=== PATIENT | female | born 1940 | race Caucasian/White ===

== ENCOUNTER 2018-02-22 11:00 | Outpatient (RCR) | payer MEDICARE, OTHER, SELFPAY | END 2018-03-15 11:52 | disposition home or self-care (01) | LOC: PT 11:00 | PROVIDERS: Visit Provider Orthopaedic Surgery Adult Reconstructive Orthopaedic Surgery | DX: M51.36 Other intervertebral disc degeneration, lumbar region (principal) | CPT/HCPCS: 97012; 97014; 97110; 97140; 97163; G0283 ==

== ENCOUNTER → 2021-10-10 19:37 | Outpatient (CLI) | payer MEDICARE, OTHER, SELFPAY ==
[2021-10-10 20:38] LABS: Basophils # 0.1 K/mm3 (0-0.2); Eosinophils # 0.2 K/mm3 (0.0-0.4); Hematocrit 46.9 % (37.0-47.0); Hemoglobin 15.3 g/dL (12.2-16.2); Lymphocytes # 2.1 K/mm3 (0.7-4.5); Lymphocytes % 30.6 % (10-50); Mean Corpuscular HGB Conc 32.7 g/dL (31.8-35.4); Mean Corpuscular Hemoglobin 32.2 pg (27.0-31.2); Mean Corpuscular Volume 98.5 fl (81-99); Mean Platelet Volume 9.8 fl (7.4-10.4); Monocytes # 0.4 K/mm3 (0.1-1.0); Monocytes % 5.1 % (1.7-9.3); Neutrophils # 4.1 K/mm3 (1.8-7.8); Neutrophils % 60.3 % (37.0-80.0); Platelet Count 271 K/mm3 (142-424); Red Blood Count 4.77 M/mm3 (4.20-5.40); Red Cell Distribution Width 13.7 % (11.5-17.5); White Blood Count 6.8 K/mm3 (4.8-10.8)
[2021-10-10 20:56] LABS: Alanine Aminotransferase 17 U/L (12-78); Albumin Level 3.4 g/dl (3.5-5.0); Albumin/Globulin Ratio 1.3 (1.1-1.8); Alkaline Phosphatase 94 U/L (38-126); Anion Gap 10.6 mEq/L (5-15); Aspartate Amino Transferase 55 U/L (14-36); Bilirubin,Total 0.3 mg/dl (0.2-1.3); Blood Urea Nitrogen 8 mg/dl (7-17); Calcium 8.6 mg/dl (8.4-10.2); Carbon Dioxide 27 mmol/L (22.0-30.0); Chloride 104 mmol/L (98-107); Chol/HDL Ratio 3.1 (1-3.5); Cholesterol 164 mg/dl (140-200); Estimated Glomerular Filt Rate 60 ml/min (>60); GFR (African American) 73 ML/MIN (>60); Globulin 2.7 g/dL (1.3-3.2); Glucose 113 mg/dl (74-100); HDL Cholesterol 53 mg/dl (40-60); Potassium 4.6 mmoL/L (3.5-5.1); Sodium 137 mmol/L (136-145); Total Protein,Serum 6.1 g/dl (6.3-8.2); Triglycerides 189 mg/dl (30-150); VLDL Cholesterol 38 mg/dL (0-40)
[2021-10-10 21:07] LABS: Direct LDL Cholesterol 65.57 mg/dL (100-129)
== END ==
PROVIDERS: PCP Internal Medicine Adolescent Medicine; Visit Provider Internal Medicine Adolescent Medicine
DX: I50.30 Unspecified diastolic (congestive) heart failure (principal); Z86.73 Personal history of transient ischemic attack (TIA), and cerebral infarction without residual deficits; E78.5 Hyperlipidemia, unspecified; Z86.2 Personal history of diseases of the blood and blood-forming organs and certain disorders involving the immune mechanism
CPT/HCPCS: 80053; 80061; 85025

== ENCOUNTER → 2022-02-25 11:30 | Outpatient (CLI) | payer MEDICARE, OTHER, SELFPAY ==
[2022-02-25 19:59] LABS: Basophils # 0.1 K/mm3 (0-0.2); Basophils % 0.8 % (0.1-2.0); Eosinophils # 0.3 K/mm3 (0.0-0.4); Eosinophils % 3.2 % (0.1-12.0); Hemoglobin 14.6 g/dL (12.2-16.2); Lymphocytes # 2.4 K/mm3 (0.7-4.5); Lymphocytes % 30.5 % (10-50); Mean Corpuscular HGB Conc 32.5 g/dL (31.8-35.4); Mean Corpuscular Hemoglobin 30.7 pg (27.0-31.2); Mean Corpuscular Volume 94.4 fl (81-99); Mean Platelet Volume 9.5 fl (7.4-10.4); Monocytes # 0.5 K/mm3 (0.1-1.0); Monocytes % 6.5 % (1.7-9.3); Neutrophils # 4.7 K/mm3 (1.8-7.8); Neutrophils % 58.9 % (37.0-80.0); Platelet Count 271 K/mm3 (142-424); Red Blood Count 4.77 M/mm3 (4.20-5.40); Red Cell Distribution Width 13.5 % (11.5-17.5)
[2022-02-25 20:23] LABS: Alanine Aminotransferase 27 U/L (12-78); Albumin Level 3.8 g/dl (3.5-5.0); Albumin/Globulin Ratio 1.4 (1.1-1.8); Alkaline Phosphatase 111 U/L (38-126); Aspartate Amino Transferase 36 U/L (14-36); Bilirubin,Total 0.5 mg/dl (0.2-1.3); Blood Urea Nitrogen 9 mg/dl (7-17); Calcium 8.8 mg/dl (8.4-10.2); Carbon Dioxide 27 mmol/L (22.0-30.0); Chloride 102 mmol/L (98-107); Chol/HDL Ratio 2.7 (1-3.5); Cholesterol 169 mg/dl (140-200); Estimated Glomerular Filt Rate 53 ml/min (>60); GFR (African American) 65 ML/MIN (>60); Globulin 2.7 g/dL (1.3-3.2); Glucose 78 mg/dl (74-100); HDL Cholesterol 62 mg/dl (40-60); Sodium 138 mmol/L (136-145); Total Protein,Serum 6.5 g/dl (6.3-8.2); Triglycerides 216 mg/dl (30-150); VLDL Cholesterol 43 mg/dL (0-40)
[2022-02-25 20:47] LABS: Hemoglobin A1C 5.5 % (4.0-6.0)
[2022-02-25 20:53] LABS: Thyroid Stimulating Hormone 4.47 uIU/mL (0.465-4.68)
[2022-02-25 20:58] LABS: Anion Gap 13.4 mEq/L (5-15); Potassium 4.4 mmoL/L (3.5-5.1)
== END ==
PROVIDERS: PCP Family Medicine; Visit Provider Family Medicine
DX: I10 Essential (primary) hypertension (principal); R53.83 Other fatigue; Z00.00 Encounter for general adult medical examination without abnormal findings; R73.9 Hyperglycemia, unspecified
CPT/HCPCS: 80053; 80061; 83036; 84443; 85025

== ENCOUNTER → 2022-04-03 06:30 | Outpatient (CLI) | payer MEDICARE, OTHER, SELFPAY | PROVIDERS: PCP Nurse Practitioner Family; Visit Provider Nurse Practitioner Family | DX: R30.0 Dysuria (principal); B96.1 Klebsiella pneumoniae [K. pneumoniae] as the cause of diseases classified elsewhere | CPT/HCPCS: 87086; 87088; 87186 ==

== ENCOUNTER → 2022-09-05 16:08 | Outpatient (CLI) | payer MEDICARE, OTHER, SELFPAY | PROVIDERS: PCP Nurse Practitioner Family; Visit Provider Nurse Practitioner Family | DX: R30.0 Dysuria (principal); B96.1 Klebsiella pneumoniae [K. pneumoniae] as the cause of diseases classified elsewhere | CPT/HCPCS: 87086; 87088; 87186 ==

== ENCOUNTER → 2022-09-18 23:08 | Outpatient (CLI) | payer MEDICARE, OTHER, SELFPAY | PROVIDERS: PCP Nurse Practitioner Family; Visit Provider Nurse Practitioner Family | DX: R30.0 Dysuria (principal); B96.1 Klebsiella pneumoniae [K. pneumoniae] as the cause of diseases classified elsewhere | CPT/HCPCS: 87086; 87088; 87186 ==

== ENCOUNTER 2023-03-07 23:04 | Observation (INO) | payer MEDICARE, OTHER, SELFPAY ==
[2023-03-07 22:58] VITALS: BP 159/88; PULSE 82; RESP 20; TEMP 36.8; O2SAT 95; BMI 39.3
--- NOTE | 2023-03-07 22:58 | PC.NURSE ---
in room talking with patient at this time
--- NOTE | 2023-03-07 23:13 | ECG_ITS ---
APPROVED REPORT Exam: Resting ECG HR:71 bpm ECG Measurements Heart Rate 71 AXES NC 171 P 32 QRSd 140 QRS 64 QT 422 T 34 QTc 444 Conclusion SINUS RHYTHM RIGHT BUNDLE BRANCH BLOCK [120+ ms QRS DURATION, UPRIGHT V1, 40+ ms S IN I/aVL/V4/V5/V6] ABNORMAL ECG UNCONFIRMED REPORT Electronically signed by : Miguel Morgan MD 03/08/2023 08:38:01
--- NOTE | 2023-03-07 23:26 | CT_ITS ---
PROCEDURE INFORMATION: Exam: CT Head Without Contrast Exam date and time: 03/08/2023 1:13 AM Age: 82 years old Clinical indication: Injury or trauma; Fall TECHNIQUE: Imaging protocol: Computed tomography of the head without contrast. Total images: 267 Radiation optimization: All CT scans at this facility use at least one of these dose optimization techniques: automated exposure control; mA and/or kV adjustment per patient size (includes targeted exams where dose is matched to clinical indication); or iterative reconstruction. REPORTING DATA: Count of CT and Cardiac NM exams in prior 12 months: This patient has received 0 known CTs and 0 known cardiac nuclear medicine studies in the 12 months prior to the current study. COMPARISON: No relevant prior studies available. FINDINGS: Brain: No acute intracranial hemorrhage, midline shift, or mass. Mild cortical and cerebellar atrophy. Medrano-white interface is maintained. Mild periventricular white matter hypodensity compatible with remote small vessel ischemic change. Basilar cisterns are preserved. Remote lacunar infarcts bilateral basal ganglia and left thalamus. Remote white matter ischemic changes central adonis. Cerebral ventricles: Mild ventriculomegaly compatible degree of central atrophy. Paranasal sinuses: Complete opacification left maxillary sinus. Air-fluid level right maxillary sinus. Partially opacified bilateral ethmoid air cells. Air-fluid level left sphenoid sinus. Mastoid air cells: Status post left mastoidectomy. Bones/joints: Osteopenia. No skull fracture. Hyperostosis of the frontal calvarium. Soft tissues: Unremarkable. Vasculature: Severe calcifications bilateral intracranial internal carotid arteries. IMPRESSION: 1. No acute intracranial process. 2. Chronic intracranial findings. 3. Acute paranasal sinusitis.
--- NOTE | 2023-03-07 23:27 | XR_ITS ---
PROCEDURE INFORMATION: Exam: XR Pelvis Exam date and time: 03/07/2023 11:47 PM Age: 82 years old Clinical indication: Pelvic pain; Additional info: Fall, left side pain TECHNIQUE: Imaging protocol: Radiologic exam of the pelvis. Views: 1 or 2 view. COMPARISON: No relevant prior studies available. FINDINGS: Bones/joints: Unremarkable. No acute fracture. Degenerative changes of spine. Soft tissues: Unremarkable. Gastrointestinal tract: Moderately large colonic stool burden. Nonobstructive bowel gas pattern. IMPRESSION: No acute radiographic findings identified.
--- NOTE | 2023-03-07 23:27 | CT_ITS ---
PROCEDURE INFORMATION: Exam: CT Cervical Spine Without Contrast Exam date and time: 03/08/2023 1:16 AM Age: 82 years old Clinical indication: Neck pain; Additional info: Fall TECHNIQUE: Imaging protocol: Computed tomography of the cervical spine without contrast. Total images: 272 Radiation optimization: All CT scans at this facility use at least one of these dose optimization techniques: automated exposure control; mA and/or kV adjustment per patient size (includes targeted exams where dose is matched to clinical indication); or iterative reconstruction. REPORTING DATA: Count of CT and Cardiac NM exams in prior 12 months: This patient has received 0 known CTs and 0 known cardiac nuclear medicine studies in the 12 months prior to the current study. COMPARISON: CT HEAD/BRAIN WO CON 03/08/2023 1:13 AM FINDINGS: Bones/joints: Osteopenia. Attenuation artifact compromising detail at lower levels. Vertebral body height and alignment is preserved. The base of the dens and the C1 and C2 articulations are maintained with moderate degenerative changes and calcification the cruciate ligaments. The cervicooccipital junction is intact. Facet joints are appropriately aligned with moderate degenerate facet spondylosis. Moderate multilevel degenerative disc disease throughout the cervical spine greatest at C5-C6 and C6-C7. Posterior projecting disc osteophyte complex at multiple levels, greatest at C5-C6 and C6-C7 resulting in mild acquired spinal canal stenosis. Multilevel bilateral mild neural foraminal encroachments by uncovertebral spurs. Paranasal sinuses: Paranasal sinus disease as described on separate head CT. Mastoid air cells: Status post left mastoidectomy. Prevertebral and retropharyngeal spaces: No prevertebral soft tissue swelling. Lungs: Included upper lungs are clear. Soft tissues: Unremarkable soft tissues of the neck. IMPRESSION: 1. No acute cervical fracture or traumatic subluxation. 2. Degenerative changes as described.
--- NOTE | 2023-03-07 23:27 | XR_ITS ---
PROCEDURE INFORMATION: Exam: XR Chest Exam date and time: 03/07/2023 11:47 PM Age: 82 years old Clinical indication: Pain; Additional info: Fall, recent uri, persistent SOB TECHNIQUE: Imaging protocol: Radiologic exam of the chest. Views: 1 view. COMPARISON: No relevant prior studies available. FINDINGS: Lungs: Unremarkable. No consolidation. Pleural spaces: Unremarkable. No pleural effusion. No pneumothorax. Heart/Mediastinum: Unremarkable. No cardiomegaly. Bones/joints: Unremarkable. IMPRESSION: No acute findings.
--- NOTE | 2023-03-07 23:28 | XR_ITS ---
PROCEDURE INFORMATION: Exam: XR Left Elbow Exam date and time: 03/07/2023 11:47 PM Age: 82 years old Clinical indication: Pain; Elbow; Left; Additional info: Fall pain TECHNIQUE: Imaging protocol: Radiologic exam of the left elbow. Views: 3 or more views. COMPARISON: No relevant prior studies available. FINDINGS: Bones/joints: Normal. Soft tissues: Normal. IMPRESSION: No acute findings.
--- NOTE | 2023-03-07 23:28 | XR_ITS ---
PROCEDURE INFORMATION: Exam: XR Left Humerus Exam date and time: 03/07/2023 11:47 PM Age: 82 years old Clinical indication: Pain; Upper arm; Left; Additional info: Fall pain TECHNIQUE: Imaging protocol: Radiologic exam of the left humerus. Views: 2 or more views. COMPARISON: No relevant prior studies available. FINDINGS: Bones/joints: Normal. Moderate degenerative changes of the acromioclavicular and glenohumeral joints. Soft tissues: Normal. IMPRESSION: No acute findings.
--- NOTE | 2023-03-07 23:28 | XR_ITS ---
PROCEDURE INFORMATION: Exam: XR Left Shoulder Exam date and time: 03/07/2023 11:47 PM Age: 82 years old Clinical indication: Pain; Shoulder; Left; Additional info: Fall, pain TECHNIQUE: Imaging protocol: Radiologic exam of the left shoulder. Views: 2 or more views. COMPARISON: No relevant prior studies available. FINDINGS: Bones/joints: Normal. Moderate degenerative changes of glenohumeral and acromioclavicular joints. Soft tissues: Normal. IMPRESSION: No acute findings.
--- NOTE | 2023-03-07 23:28 | XR_ITS ---
PROCEDURE INFORMATION: Exam: XR Right Hip Exam date and time: 03/07/2023 11:47 PM Age: 82 years old Clinical indication: Hip pain; Right hip; Additional info: Fall pain TECHNIQUE: Imaging protocol: Radiologic exam of the right hip. Views: 2 or 3 views hip with pelvis when performed. COMPARISON: No relevant prior studies available. FINDINGS: Bones/joints: Unremarkable. No acute fracture. [id number] degenerative changes visualized hip. Soft tissues: Unremarkable. IMPRESSION: No acute findings.
--- NOTE | 2023-03-07 23:28 | XR_ITS ---
PROCEDURE INFORMATION: Exam: XR Left Hip Exam date and time: 03/07/2023 11:47 PM Age: 82 years old Clinical indication: Hip pain; Left hip; Additional info: Fall pain TECHNIQUE: Imaging protocol: Radiologic exam of the left hip. Views: 2 or 3 views hip with pelvis when performed. COMPARISON: No relevant prior studies available. FINDINGS: Bones/joints: Unremarkable. No acute fracture. Moderate degenerative changes of hip. Soft tissues: Unremarkable. IMPRESSION: No acute findings.
[2023-03-07 23:36] LABS: Basophils % 0.3 % (0.1-2.0); Eosinophils # 0.4 K/mm3 (0.0-0.4); Hematocrit 43.8 % (37.0-47.0); Hemoglobin 14.8 g/dL (12.2-16.2); Mean Corpuscular HGB Conc 33.8 g/dL (31.8-35.4); Mean Corpuscular Hemoglobin 31.4 pg (27.0-31.2); Mean Corpuscular Volume 92.7 fl (81-99); Mean Platelet Volume 8.4 fl (7.4-10.4); Monocytes # 0.5 K/mm3 (0.1-1.0); Monocytes % 5.5 % (1.7-9.3); Neutrophils # 6.9 K/mm3 (1.8-7.8); Neutrophils % 70.2 % (37.0-80.0); Platelet Count 253 K/mm3 (142-424); Red Blood Count 4.73 M/mm3 (4.20-5.40); Red Cell Distribution Width 14.9 % (11.5-17.5); White Blood Count 9.8 K/mm3 (4.8-10.8)
[2023-03-07 23:37] LABS: Chloride 99 mmol/L (98-107); Potassium 3.9 mmoL/L (3.5-5.1); Sodium 134 mmol/L (136-145)
[2023-03-07 23:38] VITALS: BP 182/70; PULSE 79; O2SAT 95
[2023-03-07 23:39] LABS: Blood Urea Nitrogen 14 mg/dl (7-17); Creatinine Clearance Estimated 53 mL/min (50-200); Estimated Glomerular Filt Rate 39 ml/min (>60); GFR (African American) 48 ML/MIN (>60)
[2023-03-07 23:40] LABS: Alanine Aminotransferase 41 U/L (12-78); Albumin Level 3.5 g/dl (3.5-5.0); Albumin/Globulin Ratio 1.2 (1.1-1.8); Alkaline Phosphatase 96 U/L (38-126); Anion Gap 9.9 mEq/L (5-15); Aspartate Amino Transferase 33 U/L (14-36); Bilirubin,Total 0.8 mg/dl (0.2-1.3); Calcium 8.3 mg/dl (8.4-10.2); Carbon Dioxide 29 mmol/L (22.0-30.0); Globulin 2.9 g/dL (1.3-3.2); Glucose 137 mg/dl (74-100); Total Protein,Serum 6.4 g/dl (6.3-8.2)
[2023-03-07 23:41] LABS: Magnesium 2.2 mg/dl (1.6-2.3)
[2023-03-08] VITALS (8 sets, daily range): BP systolic 116–181; BP diastolic 50–99; PULSE 63–110; RESP 16–20; TEMP 36.6–37.2; O2SAT 90–96; BMI 35.8; BMI 35.5
--- NOTE | 2023-03-08 00:29 | HMH.EDGENADL ---
Discharge Plan Disposition Patient Disposition: Admitted Prescriptions Prescriptions: No Action fluticasone propionate 50 mcg/actuation spray,suspension 2 spray NS omega-3 fatty acids 1,000 mg capsule 1,000 mg PO DAILY psyllium husk [Daily Fiber] 0.4 gram capsule 0.4 g PO DAILY aspirin 325 mg tablet 325 mg PO DAILY folic acid 400 mcg tablet 0.4 mg PO DAILY cranberry fruit concentrate 450 mg tablet 450 mg PO DAILY Rx Instructions: administer with a meal triamcinolone acetonide 0.1 % cream 1 applic TP DAILY Qty: 15 0RF albuterol sulfate 90 mcg/actuation HFA aerosol inhaler 1 inh inhalation QID Qty: 6.7 2RF docusate sodium [Colace] 100 mg capsule 100 mg PO DAILY Qty: 30 3RF levothyroxine 50 mcg tablet See Rx Instructions .ROUTE .COMPLEX Qty: 90 3RF Dose Instruction: TAKE 1 TABLET BY MOUTH ONCE DAILY FOR HYPOTHYROIDISM Rx Instructions: TAKE 1 TABLET BY MOUTH ONCE DAILY FOR HYPOTHYROIDISM pantoprazole 20 mg tablet,delayed release (DR/EC) 20 mg PO DAILY 90 Days Qty: 90 0RF bupropion HCl 150 mg tablet extended release 24 hr 150 mg PO DAILY 90 Days Qty: 90 0RF furosemide 20 mg tablet 20 mg PO BID 90 Days Qty: 180 0RF gabapentin 300 mg capsule 300 mg PO TID Qty: 90 2RF rosuvastatin 10 mg tablet See Rx Instructions .ROUTE .COMPLEX Qty: 90 0RF Dose Instruction: TAKE 1 TABLET BY MOUTH ONCE DAILY FOR HYPERLIPIDEMIA Rx Instructions: TAKE 1 TABLET BY MOUTH ONCE DAILY FOR HYPERLIPIDEMIA potassium chloride 20 mEq tablet,ER particles/crystals See Rx Instructions .ROUTE .COMPLEX Qty: 90 0RF Dose Instruction: Take 1 tablet by mouth once daily Rx Instructions: Take 1 tablet by mouth once daily prednisone 10 mg tablets,dose pack See Rx Instructions PO PER PKG DIR Qty: 21 0RF Rx Instructions: PO PER PKG DIR Clinical Impressions Clinical Impression: JANEE (acute kidney injury), Falls frequently, Right leg weakness, Left elbow pain, Debility Discharge ED Provider: Elmo Camejo Adult HPI General Chief complaint: Fall Stated complaint: pain Time Seen by Provider: 03/07/23 23:13 Mode of Arrival: EMS Source of Information: Patient and EMS Limitations: Physical Limitations Description of Symptoms (Recalled from ER Triage Doc. by RN): Pt arrives from home by EMS, with complaints of right leg and left arm pain & weakness. Pt states she took a fall yesterday in her bathroom from standing position, denies any LOC. Pt lives at home with her sister and she told EMS she has been falling a lot lately. Hx of TIA, NIH at this time 0. Pt A/O x 4. History of Present Illness HPI narrative: 82-year-old female, history of prior stroke without residual deficits, history of memory issues , hypothyroidism presents with multiple complaints. History obtained by interactive discussion with EMS, patient, patient's sister (medical power of personal injury attorney). Patient is alert and oriented and answers questions, but is a relatively poor historian. Patient lives home alone but has someone in the house during the day most days. She has a power lift chair. For the last 3 weeks or so, patient has had worsening right leg weakness. She reports that she feels like its not working properly. She normally ambulates with a walker. She has had multiple falls over the last couple of weeks. She had a fall yesterday afternoon/evening as well. She reports left upper extremity and left hip pain after the fall. Denies loss of consciousness. She denies any chest pain abdominal pain or shortness of breath. Sister reports that she had a recent respiratory illness. Patient is on aspirin. Related Data Home Medications Medication Instructions Recorded Confirmed aspirin 325 mg tablet 325 mg PO DAILY 10/10/21 02/19/23 cranberry fruit concentrate 450 mg 450 mg PO DAILY 10/10/21 02/19/23 tablet fluticasone propionate 50 2 sp
--- NOTE | 2023-03-08 01:21 | PC.NURSE ---
ED doctor on phone with hospitalist re: admission
--- NOTE | 2023-03-08 01:28 | PC.NURSE ---
Admitting notified for admission
--- NOTE | 2023-03-08 01:29 | EXP.HP ---
History of Present Illness *Admission Date: 03/08/23 *Reason for visit:: right leg weakness *History of present illness: 82 year old female presented to the ED for c/o right leg pain and left arm pain. PMHX of dementia, hypothyroidism, cva, hld, gerd and falls. The ED workup revealed a JANEE with a creatinine of 1.30. Her Imaging in the ED obtained showed no acute fractures or injury. The ED attempted to walk pt and ED physician reported that pt is unable to left right foot off ground. Pt states this has been occurring for the past three weeks and has been causing her to fall. She lives alone. The ED physician consulted the hospitalist service. I admitted the pt to the medical surgical floor. She will have PT evaluation in the morning. She denies any pain. She is able to lift both legs bilateral in the bed. Strength in both legs are equal upon exam. [facility] Disclaimer: The information contained in this section may have been updated after the patient was seen, as this information can be updated by other users. Medical History (Updated 03/08/23 @ 01:31 by SUDHIR [place]) Allergic rhinitis Anemia Anxiety and depression Bronchitis Dementia Edema GERD (gastroesophageal reflux disease) Heart failure Hyperlipidemia Hypothyroidism Ischemic stroke Neuropathy Urinary tract infection Surgical History H/O hemorrhoidectomy H/O shoulder surgery History of cholecystectomy History of ear surgery Family History Mother Hypertension Cancer Stroke Brother Cancer Heart attack Father Cancer Social History (Updated 03/08/23 @ 02:29 by Micheline Michel RN) Smoking Status: Never smoker second hand exposure: No alcohol intake: never counseling given: No current occupational status: retired Travel in the last 8 weeks: None Review of Systems *Cardiovascular Cardiovascular: Reports system reviewed and no additional complaints, except as documented *Respiratory Respiratory: Reports system reviewed and no additional complaints, except as documented *Gastrointestinal Gastrointestinal: Reports system reviewed and no additional complaints, except as documented *Genitourinary Genitourinary: Reports system reviewed and no additional complaints, except as documented *Musculoskeletal Musculoskeletal: Reports abnormal gait *Neurologic Neurologic: Reports system reviewed and no additional complaints, except as documented and Reports abnormal gait Meds Home Medications and Allergies Home Medications Medication Instructions Recorded Confirmed Type aspirin 325 mg tablet 325 mg PO DAILY Heart Health 10/10/21 03/08/23 History fluticasone propionate 50 2 spray intranasal HS Allergy 10/10/21 03/08/23 History mcg/actuation nasal Symptoms spray,suspension albuterol sulfate 90 mcg/actuation 1 inh inhalation QIDP PRN 03/08/23 03/08/23 History aerosol inhaler Shortness Of Breath bupropion HCl 150 mg 24 hr tablet, 150 mg PO DAILY Mood 03/08/23 03/08/23 History extended release furosemide 20 mg tablet 20 mg PO DAILY Fluid 03/08/23 03/08/23 History gabapentin 300 mg capsule 300 mg PO TID Pain 03/08/23 03/08/23 History levocetirizine 5 mg tablet 5 mg PO DAILY Allergy Symptoms 03/08/23 03/08/23 History levothyroxine 50 mcg tablet 50 mcg PO DAILY Thyroid 03/08/23 03/08/23 History pantoprazole 20 mg tablet,delayed 20 mg PO DAILY Acid Reflux 03/08/23 03/08/23 History release potassium chloride 20 mEq 20 meq PO DAILY Supplement 03/08/23 03/08/23 History tablet,extended release(part/cryst) rosuvastatin 10 mg tablet 10 mg PO HS Cholesterol 03/08/23 03/08/23 History New Prescriptions to Start Prescriptions: Allergies Allergy/AdvReac Type Severity Reaction Status Date / Time doxycycline Allergy Intermediate DIARRHEA, Verified 02/19/23 10:22 UPSETS STOMACH erythromycin base Allergy Intermedia
--- NOTE | 2023-03-08 01:47 | PC.NURSE ---
0140 RECEIVED PHONE REPORT FROM NORMA RN/ED NURSE. PATIENT IS AN 82 YO FEMALE. ADMISSION DX: RIGHT LEG WEAKNESS/FREQ FALLS. NUMEROUS ALLERGIES.
--- NOTE | 2023-03-08 02:02 | PC.NURSE ---
Pt arrived to floor via wheelchair @ 0200
[2023-03-08 02:11] LABS: Thyroid Stimulating Hormone 6.83 uIU/mL (0.465-4.68)
--- NOTE | 2023-03-08 02:16 | PC.NURSE ---
0200 PATIENT ARRIVED TO THE FLOOR VIA W/C ACCOMPANIED BY 4 FAMILY MEMBERS.
[2023-03-08 08:39] LABS: Basophils % 0.3 % (0.1-2.0); Eosinophils # 0.4 K/mm3 (0.0-0.4); Eosinophils % 5.4 % (0.1-12.0); Hematocrit 39.8 % (37.0-47.0); Hemoglobin 13.4 g/dL (12.2-16.2); Lymphocytes # 1.8 K/mm3 (0.7-4.5); Lymphocytes % 25.6 % (10-50); Mean Corpuscular HGB Conc 33.7 g/dL (31.8-35.4); Mean Platelet Volume 8.6 fl (7.4-10.4); Monocytes # 0.5 K/mm3 (0.1-1.0); Monocytes % 6.9 % (1.7-9.3); Neutrophils # 4.3 K/mm3 (1.8-7.8); Neutrophils % 61.7 % (37.0-80.0); Platelet Count 222 K/mm3 (142-424); Red Blood Count 4.32 M/mm3 (4.20-5.40); Red Cell Distribution Width 14.8 % (11.5-17.5)
--- NOTE | 2023-03-08 08:42 | HMH.PHAINT1 ---
Pharmacy Intervention Comments: MEDICATION RECONCILIATION COMPLETED ON PATIENT USING EXTERNAL FILL HISTORY FROM PHARMACY. -LIZZY ALBERTO, GLYNND
[2023-03-08 08:46] LABS: Anion Gap 8.3 mEq/L (5-15); Blood Urea Nitrogen 12 mg/dl (7-17); Calcium 8.1 mg/dl (8.4-10.2); Carbon Dioxide 28 mmol/L (22.0-30.0); Chloride 100 mmol/L (98-107); Creatinine Clearance Estimated 52 mL/min (50-200); Estimated Glomerular Filt Rate 43 ml/min (>60); GFR (African American) 52 ML/MIN (>60); Glucose 101 mg/dl (74-100); Potassium 3.3 mmoL/L (3.5-5.1); Sodium 133 mmol/L (136-145)
--- NOTE | 2023-03-08 14:01 | HMH.PTEV ---
Physical Therapy Evaluation Rehab PT IP Evaluation Start: 03/08/23 01:26 Freq: ONCE Status: Active Protocol: Document 03/08/23 13:50 HWADE (Rec: 03/08/23 14:00 HWADE [id number]) Subjective/History History History Pt is a 82 year old female that presented to [facility] ED with reports of R arm/leg pain. Work up in ED revealed JANEE with a creatinine of 1.30. Imaging performed was negative for acute abnormality. ED attempted to walk pt and pt was unable to lift R foot off the floor. Pt was admitted for inpatient management and further evaluation. PMH: Allergic rhinitis Anemia Anxiety and depression Bronchitis Dementia Edema GERD (gastroesophageal reflux disease) Heart failure Hyperlipidemia Hypothyroidism Ischemic stroke Neuropathy Urinary tract infection Subjective Subjective Pt presents seated in bedside chair with sister at side, pleasant and agreeable to PT evaluation. Pt denies reports of pain at rest. Pt oriented to person and time with VC. Pt and sister report that she lives at home alone in a [facility] with 2 ANOOP. Pt reports that she uses a RW at baseline. Pt states that she has daily assistance from 10am-6pm. Pt states that they assist her with showering, laundry and other household tasks. Pt reports ~4 falls recently. Pt performed sit <> stand transfer with min A. Pt ambulated x30' with min A and SURGICAL APPLIANCE FITTER. Pt demonstrates RLE foot drop during gait and is unable t
--- NOTE | 2023-03-08 16:13 | P.EN_ITS ---
Advance care planning note: Active diagnosis: TIA, fall history of stroke with residual right foot drop, neuropathy, anxiety, hypothyroidism, obesity The patient's active diagnoses are of sufficient risk that focused discussion on advanced care planning is indicated in order to allow the patient to thoughtfully consider personal goals of care; and, if situations arise that prevent the ability to personally give input, to ensure appropriate representation of their personal desires through documentation or informed surrogate decision makers. Discussion: Persons present and participating in discussion: Stefany and her sister Marah Discussion: Kyrie Mccall's frequent falls, her safety going home. Stefany is adamant that she wants to go home and does not want to go to a care home. Discussed her history of previous falls and her previous stroke that left her at [facility] for 3 months where she learn to walk again and go from being wheelchair dependent to able to ambulate with a walker. At this time she has a music theory professor that is with her daily from 10 AM to 6 PM. She reports she falls about twice a week, sometimes her music theory professor will find her aft er she is fallen in the morning and help her get up. Has fortunately not had traumatic event such as head trauma or hip fracture as of yet but is high risk for adverse events, significant injury to life or limb, or . PT evaluated and recommends home with 24-hour assistance and home health or short-term skilled placement. Patient does not want to leave her home even though she lives in [place] by herself and her sister who is her only relative lives in [place]. Has necessitated EMS to come to her house and pick her up previously. Does have a life alert but forgets to use it. Patient states she understands the risk but does have history of some mild cognitive impairment and previous CVAs. Discussed the need for case management to assist with dispo recommendations. Patient is open to this. Time spent: Total time spent [id number] in education and discussion directly related to advance care plannin minutes Abdon Fox 03/08/2023 3-3 20 5 PM
--- NOTE | 2023-03-08 17:23 | PC.NURSE ---
Patient has mild confusion and needs some things repeated during conversation and needs mild reorientation during conversation. Patient gets up to restroom with 2 assist. Vital signs stable.
[2023-03-09 04:00] VITALS: BP 128/49; PULSE 82; RESP 16; TEMP 36.6; O2SAT 91; BMI 35.9
--- NOTE | 2023-03-09 05:06 | PC.NURSE ---
PATIENT REFUSES HEPARIN FOR VTE. A/O X 3. BED ALARM IN USE. RESTING QUIETLY IN BED WITH HOB ELEVATED 35 DEGREES.
[2023-03-09 06:14] LABS: Basophils % 0.3 % (0.1-2.0); Eosinophils # 0.4 K/mm3 (0.0-0.4); Eosinophils % 4.5 % (0.1-12.0); Hematocrit 41.1 % (37.0-47.0); Hemoglobin 13.5 g/dL (12.2-16.2); Lymphocytes % 26.2 % (10-50); Mean Corpuscular Hemoglobin 30.7 pg (27.0-31.2); Mean Corpuscular Volume 93.1 fl (81-99); Mean Platelet Volume 8.4 fl (7.4-10.4); Monocytes # 0.6 K/mm3 (0.1-1.0); Monocytes % 7.3 % (1.7-9.3); Neutrophils # 4.7 K/mm3 (1.8-7.8); Neutrophils % 61.7 % (37.0-80.0); Platelet Count 216 K/mm3 (142-424); Red Blood Count 4.41 M/mm3 (4.20-5.40); White Blood Count 7.7 K/mm3 (4.8-10.8)
[2023-03-09 06:23] LABS: Alanine Aminotransferase 28 U/L (12-78); Albumin Level 2.9 g/dl (3.5-5.0); Albumin/Globulin Ratio 1.1 (1.1-1.8); Alkaline Phosphatase 85 U/L (38-126); Anion Gap 5.9 mEq/L (5-15); Aspartate Amino Transferase 26 U/L (14-36); Bilirubin,Total 0.8 mg/dl (0.2-1.3); Blood Urea Nitrogen 10 mg/dl (7-17); Calcium 8.2 mg/dl (8.4-10.2); Carbon Dioxide 29 mmol/L (22.0-30.0); Chloride 102 mmol/L (98-107); Creatinine Clearance Estimated 52 mL/min (50-200); Estimated Glomerular Filt Rate 43 ml/min (>60); GFR (African American) 52 ML/MIN (>60); Globulin 2.6 g/dL (1.3-3.2); Glucose 102 mg/dl (74-100); Magnesium 2.2 mg/dl (1.6-2.3); Potassium 3.9 mmoL/L (3.5-5.1); Sodium 133 mmol/L (136-145); Total Protein,Serum 5.5 g/dl (6.3-8.2)
--- NOTE | 2023-03-09 07:43 | SW/DCPLANNER ---
Addendum entered by Haylie Rivas 03/09/23 13:33: Julia w/ [facility] stated that services will begin this week for this patient. Addendum entered by Haylie Rivas 03/09/23 09:39: I spoke w/ patient and her sister in the room this AM: patient is adamant she wants to return home w/ home health services and private sitter from 10AM-6PM. I have also provided patient w/ private sitter's list. Addendum entered by Haylie Rivas 03/09/23 08:50: I have also provided this patient w/ a private sitter's list. Original Note: I spoke w/ patient regarding plans once medically stable for discharge. Patient stated that she resides at home alone in [place] but will have someone staying w/ her at discharge. PT evaluated patient and recommended home w/ 17/11 assistance and home health vs SNF. I explained to patient at this time if interested in SNF it would be private pay. Patient expressed that she is only interested in returning home w/ assistance (she has already arranged this) and home health services. Patient stated that she prefers to use [facility] at time of discharge. Patient stated that she is suppose to discharge home today. Patient did not have any further questions/needs at this time. I will set up home health services once medically stable for discharge.
[2023-03-09 07:51] VITALS: BP 154/57; PULSE 81; RESP 20; TEMP 36.7; O2SAT 93
--- NOTE | 2023-03-09 10:22 | HMH.OTEV ---
OT Inpatient Evaluation Rehab OT IP Evaluation Start: 03/08/23 16:12 Freq: ONCE Status: Active Protocol: Document 03/09/23 08:56 GLENN (Rec: 03/09/23 09:01 GLENN [id number]) Rehab OT IP Assessment Subjective History 82 year old female presented to the ED for c/o right leg pain and left arm pain. PMHX of dementia, hypothyroidism, cva, hld, gerd and falls. The ED workup revealed a JANEE with a creatinine of 1.30. Her Imaging in the ED obtained showed no acute fractures or injury. The ED attempted to walk pt and ED physician reported that pt is unable to left right foot off ground. Pt states this has been occurring for the past three weeks and has been causing her to fall. She lives alone. The ED physician consulted the hospitalist service. I admitted the pt to the medical surgical floor. She will have PT evaluation in the morning. She denies any pain. She is able to lift both legs bilateral in the bed. Strength in both legs are equal upon exam. Patient has a hx of CVA. Does lives alone in 3-4 ANOOP the home. Has a life alert but forgets to use it. Uses a RW to ambulate. Hx of falling. patient reported that she Has a sitter 5 days a week to assist with ADLs and IADLs as needed. Subjective I need to use the restroom. Instructed Patient on proper hand and foot placement to complete bed mobility from supine->sit @ EOB requiring Mod A. Once at EOB, Instructed Patient on using RW to ambulate to restroom ~15ft. Patient completed fx'l mobility with RW with CGA for
--- NOTE | 2023-03-09 11:13 | EXP.DC.SUM ---
General Admission date:: 03/08/23 Discharge date: 03/09/23 HPI HPI HPI: 82 year old female presented to the ED for c/o right leg pain and left arm pain. PMHX of dementia, hypothyroidism, cva, hld, gerd and falls. The ED workup revealed a JANEE with a creatinine of 1.30. Her Imaging in the ED obtained showed no acute fractures or injury. The ED attempted to walk pt and ED physician reported that pt is unable to left right foot off ground. Pt states this has been occurring for the past three weeks and has been causing her to fall. She lives alone. The ED physician consulted the hospitalist service. I admitted the pt to the medical surgical floor. She will have PT evaluation in the morning. She denies any pain. She is able to lift both legs bilateral in the bed. Strength in both legs are equal upon exam. Hospital Course Hospital Course Hospital Course: 82 year old female presented to the ED for c/o right leg pain and left arm pain. PMHX of dementia, hypothyroidism, cva, hld, gerd and falls. The ED workup revealed a JANEE with a creatinine of 1.30. Her Imaging in the ED obtained showed no acute fractures or injury. The ED attempted to walk pt and ED physician reported that pt is unable to left right foot off ground. Pt states this has been occurring for the past three weeks and has been causing her to fall. She lives alone. The ED physician consulted the hospitalist service. I admitted the pt to the medical surgical floor. Therapy evaluated, patient at baseline. Recommend home with 24-hour assistance but patient is adamant that she will go home to her current situation. Does not want to go to rehab or long-term care. Stable for discharge. Problems addressed as follows: FALLS RIGHT LEG WEAKNESS -Patient is chronic right foot weakness and ambulates with a walker. Reports she has fallen at home a time or 2 a week. Has a caregiver with her daily from 10 AM to 6 PM. Therapy evaluated and recommended SNF or 24-hour assistance at home. Patient states she is comfortable going back to her previous setting with a caregiver daily for 8 hours. Is adamant that she will not go to a residential. At this time she has capacity to make her own decisions. Extensive discussion about risk for falling again. Patient states she understands but wants to go home and does not want to leave her house. Is highly resistant to coming back to a residential. Patient's sister involved in discussions. -Of note, imaging on arrival showed no fractures. JANEE vs CKD -Creatinine of 1.30 on admission, 1.2 on discharge. This appears to be her baseline. GERD HYPOTHYROIDISM HLD HX OF CVA HF ANXIETY AND DEPRESSION -Continued home medications. Stable to discharge home with home health and caregiver. Spent 35 minutes in discharge counseling and direct care with patient. Exam Data for Last 24 hours Vital signs and Labs for Last 24 Hours: Temp Pulse Resp BP Pulse Ox O2 Del Method 98.0 F 81 20 154/57 H 93 L Room Air 03/09/23 07:51 03/09/23 07:51 03/09/23 07:51 03/09/23 07:51 03/09/23 07:51 03/09/23 07:51 Laboratory Results - last 24 hr 03/09/23 05:36: WBC 7.7, RBC 4.41, Hgb 13.5, Hct 41.1, MCV 93.1, MCH 30.7, MCHC 33.0, RDW 15.0, Plt Count 216, MPV 8.4, Neut % (Auto) 61.7, Lymph % (Auto) 26.2, Cocke % (Auto) 7.3, Eos % (Auto) 4.5, Baso % (Auto) 0.3, Neut # (Auto) 4.7, Lymph # (Auto) 2.0, Cocke # (Auto) 0.6, Eos # (Auto) 0.4, Baso # (Auto) 0.0, Sodium 133 L, Potassium 3.9, Chloride 102, Carbon Dioxide 29, Anion Gap 5.9, BUN 10, Creatinine 1.20 H, Estimated Creat Clear 52, Estimated GFR 43 L, Est GFR ( Amer) 52 L, Glucose 102 H, Calcium 8.2 L, Magnesium 2.2, Total Bilirubin 0.8, AST 26, ALT 28 D, Alkaline Phosphatase 85, Total Protein 5.5 L, Albumin 2.9 L D, Globulin 2.6, Albumin/Globulin Ratio 1.1 I & O for Last 24 hours: Intake & Output 03/06/23 03/07/23 03/08/23 03/09/23 23:59 23:59 23:59 23:59 Intake Total 1694 / 1894 470 / 470 Output T
--- NOTE | 2023-03-10 12:46 | CARE MANAGER ---
Spoke with patient's sister as patient was meeting with home health. Patient had no new medications. Sister states she is doing much better and denies any questions or concerns. JESSICA Hurtado
== END 2023-03-09 13:50 | disposition home health service (06) ==
LOC: ER 03-08 01:28 → 2ND 03-08 01:57
PROVIDERS: Nurse Practitioner Critical Care Medicine; Admitting Provider Internal Medicine Adolescent Medicine; Emergency Provider Emergency Medicine; PCP Family Medicine; Visit Provider Internal Medicine Adolescent Medicine
DX: R29.898 Other symptoms and signs involving the musculoskeletal system (principal); M62.81 Muscle weakness (generalized); R29.6 Repeated falls; N17.9 Acute kidney failure, unspecified; K21.9 Gastro-esophageal reflux disease without esophagitis; E03.9 Hypothyroidism, unspecified; E78.5 Hyperlipidemia, unspecified; I50.9 Heart failure, unspecified; F41.9 Anxiety disorder, unspecified; F32.A Depression, unspecified; N18.9 Chronic kidney disease, unspecified; Z79.899 Other long term (current) drug therapy
CPT/HCPCS: 36415; 70450; 71045; 72125; 72170; 73030; 73060; 73080; 73502; 80048; 80053; 83735; 84443; 85025; 93005; 97162; 97165; 97530; 99285; G0378

== ENCOUNTER 2023-03-12 10:23 | Emergency (ER) | payer MEDICARE, OTHER, SELFPAY ==
[2023-03-12] VITALS (10 sets, daily range): BP systolic 130–165; BP diastolic 46–71; PULSE 70–91; RESP 12–20; TEMP 36.7–36.9; O2SAT 92–96; BMI 33.3; BMI 33.1
--- NOTE | 2023-03-12 11:04 | PC.NURSE ---
PATIENT SENT TO ER PER Ashlie CHONG APRN FOR FURTHER EVALUATION. REPORT GIVEN TO DR. SIMON BY Ashlie GARCÍA APRN. PATIENT TRANSPORTED TO ER VIA WHEELCHAIR WITH [facility] STAFF ASSIST. FAMILY AT BEDSIDE
--- NOTE | 2023-03-12 11:09 | ECG_ITS ---
APPROVED REPORT Exam: Resting ECG HR:85 bpm ECG Measurements Heart Rate 85 AXES AZ 177 P 49 QRSd 133 QRS 46 QT 385 T 37 QTc 427 Conclusion SINUS RHYTHM RIGHT BUNDLE BRANCH BLOCK [120+ ms QRS DURATION, UPRIGHT V1, 40+ ms S IN I/aVL/V4/V5/V6] ABNORMAL ECG UNCONFIRMED REPORT Electronically signed by : Miguel Morgan MD 03/12/2023 20:56:58
--- NOTE | 2023-03-12 11:13 | EXP.UTC ---
Discharge Plan Disposition Patient Disposition: Home, Self-Care Prescriptions Prescriptions: No Action fluticasone propionate 50 mcg/actuation spray,suspension 2 spray NS HS aspirin 325 mg tablet 325 mg PO DAILY levocetirizine 5 mg Tablet 5 mg PO DAILY potassium chloride 20 mEq tablet,ER particles/crystals 20 meq PO DAILY levothyroxine 50 mcg tablet 50 mcg PO DAILY furosemide 20 mg tablet 20 mg PO DAILY rosuvastatin 10 mg tablet 10 mg PO HS pantoprazole 20 mg tablet,delayed release (DR/EC) 20 mg PO DAILY gabapentin 300 mg capsule 300 mg PO TID albuterol sulfate 90 mcg/actuation HFA aerosol inhaler 1 inh inhalation QIDP PRN (Reason: Shortness Of Breath) bupropion HCl 150 mg tablet extended release 24 hr 150 mg PO DAILY Referrals Follow up/Referrals: Kevin Schrader MD [Primary Care Provider] - See instructions Clinical Impressions Clinical Impression: At high risk for falls, Muscular deconditioning, Acute dyspnea Discharge ED Provider: Arash Aguilar [facility] HPI General Chief complaint: Fall Stated complaint: bilateral leg pain, trouble walking Mode of Arrival: Ambulatory Source of Information: Patient Limitations: No Limitations Time Seen by Provider: 03/12/23 11:13 Description of Symptoms (Recalled from Triage Doc. by RN): PATIENT C/O WEAKNESS TO RIGHT LEG AND INABILITY TO WALK WELL. HER SISTER STATES PATIENT WAS DISCHARGED FROM HOSPITAL ON THURSDAY AFTER BEING ADMITTED FOR SAME COMPLAINT. PATIENT HAD REFUSED REHAB PLACEMENT. SISTER STATES PATIENT HAS FALLEN TWICE SINCE BEING DISCHARGED, LAST BEING THIS MORNING. HER PCP INSTRUCTED HER TO COME TO ER FOR EVALUATION HEENT Symptoms (Recalled from RN notes): No Resp Symptoms (Recalled from RN notes): No Skin Symptoms (Recalled from RN notes): No MS Symptoms (Recalled from RN notes): Yes Functional Status (Recalled from RN notes): WNL History of Present Illness Provider Complaint: Patient in wheelchair with sister at her side States that she was recently dc'd from the hospital a couple days ago States that she has been having worsening of weakness in her right leg Sister states that she has been falling more here lately and not acting herself at times States that she has fallen twice since being discharged and this morning she fell again and said her right foot would not move and she had to get EMS to come out and help States that she called her PCP and they told her to come to the ER States they wanted her to go into a assisted care facility and she refused but sister states that she cannot take care of her like this Related Data Home Medications Medication Instructions Recorded Confirmed aspirin 325 mg tablet 325 mg PO DAILY [facility] 10/10/21 03/08/23 fluticasone propionate 50 2 spray intranasal HS Allergy 10/10/21 03/08/23 mcg/actuation nasal Symptoms spray,suspension albuterol sulfate 90 mcg/actuation 1 inh inhalation QIDP PRN 03/08/23 03/08/23 aerosol inhaler Shortness Of Breath bupropion HCl 150 mg 24 hr tablet, 150 mg PO DAILY Mood 03/08/23 03/08/23 extended release furosemide 20 mg tablet 20 mg PO DAILY Fluid 03/08/23 03/08/23 gabapentin 300 mg capsule 300 mg PO TID Pain 03/08/23 03/08/23 levocetirizine 5 mg tablet 5 mg PO DAILY Allergy Symptoms 03/08/23 03/08/23 levothyroxine 50 mcg tablet 50 mcg PO DAILY Thyroid 03/08/23 03/08/23 pantoprazole 20 mg tablet,delayed 20 mg PO DAILY Acid Reflux 03/08/23 03/08/23 release potassium chloride 20 mEq 20 meq PO DAILY Supplement 03/08/23 03/08/23 tablet,extended release(part/cryst) rosuvastatin 10 mg tablet 10 mg PO HS Cholesterol 03/08/23 03/08/23 Allergies Allergy/AdvReac Type Severity Reaction Status Date / Time doxycycline Allergy Intermediate DIARRHEA, Verified 02/19/23 10:22 UPSETS STOMACH erythromycin base Allergy Intermediate NA-DIARRHEA Verified 02/19/23 10:22 AND VOMITING sulfamethoxazole Allergy I
--- NOTE | 2023-03-12 11:24 | CT_ITS ---
FINAL REPORT TECHNIQUE: Axial CT images were performed through the head. Coronal reformatted images were submitted. This study was performed with techniques to keep radiation doses as low as reasonably achievable (ALARA). Individualized dose reduction techniques using automated exposure control or adjustment of mA and/or kV according to the patient's size were employed. CLINICAL HISTORY: fall, RLE foot drop x1w COMPARISON: 03/08/2023 FINDINGS: There is moderate atrophy. There are extensive changes of chronic microvascular ischemia. There are multiple old lacunar infarcts left greater than right. There is no evidence of hemorrhage. There is no mass or edema identified. There is no abnormal extra-axial fluid seen. There is extensive opacification of the maxillary sinuses. The left maxillary sinus is completely opacified. Air-fluid level is noted in the right maxillary sinus. There is mild mucoperiosteal thickening of the ethmoid air cells. IMPRESSION: Acute and chronic maxillary and ethmoid sinusitis. Extensive changes of chronic microvascular ischemia. Reviewed, Interpreted and Dictated by Jd Cornejo MD Transcribed by Shannon Fernando Authenticated and [facility]
--- NOTE | 2023-03-12 11:24 | XR_ITS ---
FINAL REPORT CLINICAL HISTORY: CVA workup, shortness of breath, hypoxemia COMPARISON: 03/07/2023 FINDINGS: The heart size is normal. The mediastinum is normal. The lungs are a little underinflated. There is no focal infiltrate or edema. There are no pleural effusions. There is no pneumothorax. There is no osseous abnormality. IMPRESSION: No acute cardiopulmonary process Reviewed, Interpreted and Dictated by Jd Cornejo MD Transcribed by Shannon Fernando Authenticated and [facility]
--- NOTE | 2023-03-12 11:26 | HMH.EDGENADL ---
Discharge Plan Disposition Patient Disposition: Home, Self-Care Prescriptions Prescriptions: No Action fluticasone propionate 50 mcg/actuation spray,suspension 2 spray NS HS aspirin 325 mg tablet 325 mg PO DAILY levocetirizine 5 mg Tablet 5 mg PO DAILY potassium chloride 20 mEq tablet,ER particles/crystals 20 meq PO DAILY levothyroxine 50 mcg tablet 50 mcg PO DAILY furosemide 20 mg tablet 20 mg PO DAILY rosuvastatin 10 mg tablet 10 mg PO HS pantoprazole 20 mg tablet,delayed release (DR/EC) 20 mg PO DAILY gabapentin 300 mg capsule 300 mg PO TID albuterol sulfate 90 mcg/actuation HFA aerosol inhaler 1 inh inhalation QIDP PRN (Reason: Shortness Of Breath) bupropion HCl 150 mg tablet extended release 24 hr 150 mg PO DAILY Referrals Follow up/Referrals: Kevin Schrader MD [Primary Care Provider] - See instructions Clinical Impressions Clinical Impression: At high risk for falls, Muscular deconditioning, Acute dyspnea Discharge ED Provider: Aarsh Aguilar General Adult HPI General Chief complaint: Fall Stated complaint: bilateral leg pain, trouble walking Time Seen by Provider: 03/12/23 11:13 Mode of Arrival: Ambulatory Source of Information: Patient Limitations: No Limitations Description of Symptoms (Recalled from ER Triage Doc. by RN): PATIENT C/O WEAKNESS TO RIGHT LEG AND INABILITY TO WALK WELL. HER SISTER STATES PATIENT WAS DISCHARGED FROM HOSPITAL ON THURSDAY AFTER BEING ADMITTED FOR SAME COMPLAINT. PATIENT HAD REFUSED REHAB PLACEMENT. SISTER [facility] PATIENT HAS FALLEN TWICE SINCE BEING DISCHARGED, LAST BEING THIS MORNING. HER PCP INSTRUCTED HER TO COME TO ER FOR EVALUATION History of Present Illness HPI narrative: 82-year-old female presenting with shortness of breath and weakness. Patient has a history of CHF, hypothyroidism, GERD, TIA, hyperlipidemia, hypertension. Was recently admitted for JANEE and generalized weakness. Patient was discharged 03/09, but declined outpatient therapy. Patient has fallen twice since that time. Secondary to right lower extremity weakness, but patient denies hitting her head, or any other trauma or pain. Patient denies bowel or bladder dysfunction, left lower extremity symptoms, fevers or chills, chest pain. Patient has been having shortness of breath with minimal exertion, which has been exacerbating falls and weakness. Related Data Home Medications Medication Instructions Recorded Confirmed aspirin 325 mg tablet 325 mg PO DAILY [facility] 10/10/21 03/08/23 fluticasone propionate 50 2 spray intranasal HS Allergy 10/10/21 03/08/23 mcg/actuation nasal Symptoms spray,suspension albuterol sulfate 90 mcg/actuation 1 inh inhalation QIDP PRN 03/08/23 03/08/23 aerosol inhaler Shortness Of Breath bupropion HCl 150 mg 24 hr tablet, 150 mg PO DAILY Mood 03/08/23 03/08/23 extended release furosemide 20 mg tablet 20 mg PO DAILY Fluid 03/08/23 03/08/23 gabapentin 300 mg capsule 300 mg PO TID Pain 03/08/23 03/08/23 levocetirizine 5 mg tablet 5 mg PO DAILY Allergy Symptoms 03/08/23 03/08/23 levothyroxine 50 mcg tablet 50 mcg PO DAILY Thyroid 03/08/23 03/08/23 pantoprazole 20 mg tablet,delayed 20 mg PO DAILY Acid Reflux 03/08/23 03/08/23 release potassium chloride 20 mEq 20 meq PO DAILY Supplement 03/08/23 03/08/23 tablet,extended release(part/cryst) rosuvastatin 10 mg tablet 10 mg PO HS Cholesterol 03/08/23 03/08/23 Allergies Allergy/AdvReac Type Severity Reaction Status Date / Time doxycycline Allergy Intermediate DIARRHEA, Verified 02/19/23 10:22 UPSETS STOMACH erythromycin base Allergy Intermediate NA-DIARRHEA Verified 02/19/23 10:22 AND VOMITING sulfamethoxazole Allergy Intermediate STOMACH Verified 02/19/23 10:22 [From Bactrim] ISSUES, MAKE ME FEEL FUNNY trimethoprim [From Bactrim] Allergy Intermediate STOMACH Verified 02/19/23 10:22 ISSUES, MAKE ME
[2023-03-12 11:33] LABS: Basophils # 0.1 K/mm3 (0-0.2); Basophils % 0.5 % (0.1-2.0); Chloride 102 mmol/L (98-107); Eosinophils # 0.2 K/mm3 (0.0-0.4); Eosinophils % 2.4 % (0.1-12.0); Hematocrit 43.4 % (37.0-47.0); Hemoglobin 14.7 g/dL (12.2-16.2); Lymphocytes # 1.3 K/mm3 (0.7-4.5); Lymphocytes % 13.3 % (10-50); Mean Corpuscular HGB Conc 33.8 g/dL (31.8-35.4); Mean Corpuscular Volume 91.7 fl (81-99); Mean Platelet Volume 8.4 fl (7.4-10.4); Monocytes # 0.6 K/mm3 (0.1-1.0); Monocytes % 5.9 % (1.7-9.3); Neutrophils # 7.6 K/mm3 (1.8-7.8); Platelet Count 244 K/mm3 (142-424); Red Blood Count 4.73 M/mm3 (4.20-5.40); Red Cell Distribution Width 15.2 % (11.5-17.5); Sodium 135 mmol/L (136-145); White Blood Count 9.8 K/mm3 (4.8-10.8)
[2023-03-12 11:34] LABS: Potassium 4.1 mmoL/L (3.5-5.1)
[2023-03-12 11:36] LABS: Alanine Aminotransferase 38 U/L (12-78); Alkaline Phosphatase 109 U/L (38-126); Aspartate Amino Transferase 42 U/L (14-36); Bilirubin,Total 1.1 mg/dl (0.2-1.3); Blood Urea Nitrogen 7 mg/dl (7-17); Creatinine Clearance Estimated 52 mL/min (50-200); Estimated Glomerular Filt Rate 43 ml/min (>60); GFR (African American) 52 ML/MIN (>60)
[2023-03-12 11:37] LABS: Albumin Level 3.7 g/dl (3.5-5.0); Albumin/Globulin Ratio 1.2 (1.1-1.8); Anion Gap 8.1 mEq/L (5-15); Carbon Dioxide 29 mmol/L (22.0-30.0); Glucose 105 mg/dl (74-100); Total Protein,Serum 6.7 g/dl (6.3-8.2)
[2023-03-12 11:47] LABS: NT Pro Brain Natriuretic Pep. 193 pg/mL (0-450)
[2023-03-12 11:51] LABS: Troponin I < 0.01 ng/ml (0.00-0.034)
[2023-03-12 11:54] LABS: T4 (Thyroxine) 11.4 ug/dl (5.53-11.0)
[2023-03-12 12:08] LABS: Thyroid Stimulating Hormone 4.85 uIU/mL (0.465-4.68)
[2023-03-12 12:33] LABS: ABG Base Excess -0.1 mmol/L (-2.4-2.3); ABG HCO3 23.9 mmhg (22.0-26.0); ABG Oxygen Saturation 90 % (90-100); ABG PCO2 35.2 mmhg (35.0-45.0); ABG PH 7.45 mmol/L (7.35-7.45); ABG PO2 52.5 mmhg (80-100); ABG TCO2 24.9 mmhg (23-27)
[2023-03-12 12:37] LABS: Allen's Test Acceptable; Oxygen RA %; Source Left Radial
--- NOTE | 2023-03-12 13:25 | PC.NURSE ---
Care Management notified of admission.
--- NOTE | 2023-03-12 13:53 | SW/DCPLANNER ---
Addendum entered by Haylei Rivas 03/12/23 14:20: Ravin w/ [facility] stated that she can accept this patient private pay from ED. Original Note: I was consulted by ED for possible placement for this patient. Patient was recently OBS at [facility] and denied placement and returned home w/ home health services. Patient presents in ED today for weakness/unable to walk/in need of placement. After speaking with patient, her sister and caregiver the patient is agreeable to placement under private pay at [facility]. Patient information has been faxed to Ravin bolanos/ [facility]. I will continue to follow up w/ ED staff, patient and Ravin.
--- NOTE | 2023-03-12 15:20 | PC.NURSE ---
report called to adan at [facility].
== END 2023-03-12 15:22 | disposition home or self-care (01) ==
LOC: UTC 10:27 → ER 11:13
PROVIDERS: Emergency Provider Emergency Medicine; PCP Family Medicine
DX: M79.604 Pain in right leg (principal); M79.605 Pain in left leg; M62.561 Muscle wasting and atrophy, not elsewhere classified, right lower leg; M62.562 Muscle wasting and atrophy, not elsewhere classified, left lower leg; R06.02 Shortness of breath; I45.19 Other right bundle-branch block; R53.1 Weakness; R26.2 Difficulty in walking, not elsewhere classified; I11.0 Hypertensive heart disease with heart failure; I50.9 Heart failure, unspecified; E03.9 Hypothyroidism, unspecified; K21.9 Gastro-esophageal reflux disease without esophagitis; E78.5 Hyperlipidemia, unspecified; J30.9 Allergic rhinitis, unspecified; W19.XXXA Unspecified fall, initial encounter
CPT/HCPCS: 70450; 71045; 80053; 82803; 83880; 84436; 84443; 84484; 85025; 93005; 99285